=== PATIENT | male | born 1990 | race Caucasian/White ===

== ENCOUNTER 2021-11-06 15:39 | Emergency (ER) | payer SELFPAY ==
--- NOTE | ~2021-11-06 | XR_ITS ---
XR lumbar spine min 4V 11/06/2021 17:20 Indication: Low back pain Procedure: 5 views lumbar spine Comparison: No prior studies for comparison. Findings: Vertebral body and disc heights are preserved. No fracture, subluxation or spondylolisthesi s. Pedicles intact. Normal lumbar lordosis. Impression: 1: No acute abnormality of the lumbar spine. Reviewed, dictated and finalized at location A. Impression: 1: No acute abnormality of the lumbar spine.
[2021-11-06 16:50] VITALS: BP 165/98; PULSE 88; RESP 15; TEMP 36.3; O2SAT 100
--- NOTE | 2021-11-06 18:37 | ED_ITS ---
HPI - Back Pain/Injury General Chief Complaint: Back Pain/Injury Stated Complaint: back pain Time Seen by Provider: 11/06/21 18:08 History of Present Illness HPI Narrative: 41-year-old male presents the emergency room with gradual onset of left lower back pain. Patient states the pain has been present for approximately 2 weeks, and is worse with certain movements. Patient denies radiating pain, difficulty urinating, abdominal pain or fevers. Denies hematuria. 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 EYES: Denies visual changes, redness, or discharge. ENT: Denies rhinorrhea, congestion, sore throat, or otalgia. CARDIOVASCULAR: Denies chest pain, palpitations, or edema. RESPIRATORY: Denies cough or dyspnea. GASTROINTESTINAL: Denies abdominal pain, nausea, vomiting, or diarrhea. GENITOURINARY: Denies dysuria or hematuria. SKIN: Denies rash or itching. MUSCULOSKELETAL: Reports low back pain NEUROLOGIC: Denies headache, numbness, dizziness, or weakness. PSYCHIATRIC: Denies anxiety or depression. Exam Narrative: GENERAL: Well-appearing, well-nourished, no physical limitations, and in no acute distress. HEAD: Normocephalic, atraumatic. EYES: Conjunctivae normal, PERRLA and EOMI. CHEST: Clear to auscultation. No respiratory distress. No wheezes rales or rhonchi. No tenderness. HEART: Regular rate and rhythm. No murmur heard. Normal peripheral pulses. BACK: No CVA tenderness; No midline lumbar tenderness, no step-offs, bony abnormality; FROM. Tenderness over the left thoracolumbar fascia. -SLE bilateral EXTREMITIES: Normal range of motion. No edema. No clubbing or cyanosis SKIN: Warm, dry, no rash. No noted wounds NEURO: No focal deficits. Alert and oriented x3. MAEW. CN's II-XI intact bilaterally, normal gait PSYCH: Cooperative. Normal mood and affect. Course Vital Signs Vital signs: Vital Signs Temperature 36.3 C L 11/06/21 16:50 Pulse Rate 88 11/06/21 16:50 Respiratory Rate 15 11/06/21 16:50 Blood Pressure 165/98 H 11/06/21 16:50 Pulse Oximetry 100 11/06/21 16:50 Oxygen Delivery Room Air 11/06/21 16:50 Temperature 36.3 C L 11/06/21 16:50 Pulse Rate 88 11/06/21 16:50 Respiratory Rate 15 11/06/21 16:50 Blood Pressure 165/98 H 11/06/21 16:50 Pulse Oximetry 100 11/06/21 16:50 Oxygen Delivery Room Air 11/06/21 16:50 Discharge Plan Discharge Clinical Impression: Strain of lumbar region Patient Disposition: Home, Self-Care Condition: Stable Instructions: Antibiotic Form, Back Pain (ED) Prescriptions: New methocarbamol 750 mg tablet 750 mg PO TID Qty: 20 0RF naproxen 500 mg tablet 500 mg PO BID Qty: 20 0RF Follow-up/Referrals: PHYSICIAN,PUBLISHING DIRECTOR [Primary Care Provider] - Time of Disposition: 18:35
== END 2021-11-06 18:10 | disposition home or self-care (01) ==
PROVIDERS: Emergency Provider Nurse Practitioner Family
DX: S39.012A Strain of muscle, fascia and tendon of lower back, initial encounter (principal); X58.XXXA Exposure to other specified factors, initial encounter
CPT/HCPCS: 72110; 99283